=== PATIENT | female | born 1990 | race Two or more races ===

== ENCOUNTER 2025-01-06 12:50 | Day surgery (SDC) | payer SELFPAY ==
[2025-01-06] MEDS ORDERED: hydrALAZINE 20 MG/ML VIAL SLOW IVP PRN (14:15)
[2025-01-06 15:22] VITALS: BMI 38.7
[2025-01-06 15:48] LABS: Glucose, Urine (Dipstick) Normal (Negative); Leukocyte Negative (Negative); Protein, Urine (Dipstick) 15 mg/dl (Neg-Trace); Specific Gravity, Urine 1.010 (1.005-1.030)
== END 2025-01-06 17:37 | disposition home or self-care (01) ==
LOC: CSHLD/OP 12:50
PROVIDERS: ATTEND Obstetrics & Gynecology
DX: O99.891 Other specified diseases and conditions complicating pregnancy (principal); M54.9 Dorsalgia, unspecified; Z3A.28 28 weeks gestation of pregnancy; Z87.59 Personal history of other complications of pregnancy, childbirth and the puerperium; Z79.899 Other long term (current) drug therapy
CPT/HCPCS: 76815; 81003; 99285